=== PATIENT | male | born 1960 | race Caucasian/White ===

== ENCOUNTER 2017-03-20 14:46 | Observation (INO) ==
[2017-03-20] MEDS ORDERED: NS 1,000 ML IV ONE (14:56)
[2017-03-20] MEDS ORDERED: SALINE FLUSH 10ml SYRINGE IVF PRN (14:56)
--- NOTE | 2017-03-20 15:27 | Emergency Department Report ---
Alcohol HPI - General Chief Complaint: Altered Mental Status Stated Complaint: LBP Time Seen by Provider: 03/20/17 14:56 Source: family Mode of arrival: wheelchair Limitations: no limitations - History of Present Illness HPI narrative: 56yo man presented to the ER today for acute alcohol intoxication. Pt had been to today for inpt alcohol detox. While there, he was found to be hypotensive , so he was referred to the ER. On initial presentation, pt was somnolent, diaphoretic, tachypneic, hypotensive, and tachycardic. 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 Chronic alcohol use: Yes Previous visits for alcohol intoxication: Yes Recent trauma: No Associated symptoms: nausea, diaphoresis, tremors, abdominal pain, depression Treatments prior to arrival: none - Related Data Home Medications Medication Instructions Recorded Confirmed Gabapentin 600 mg PO TID #0 tab 12/12/16 03/21/17 Quetiapine Fumarate [Seroquel Xr] 800 tab PO HS #0 12/12/16 03/21/17 cloNIDine HCl [Clonidine HCl] 0.1 mg PO TID #0 tab 12/12/16 03/21/17 Omeprazole [Prilosec] 1 cap PO ACB 03/20/17 03/20/17 Propranolol [Inderal] 20 mg PO TID 03/20/17 03/20/17 Tamsulosin [Flomax] 0.4 mg PO HS 03/20/17 03/21/17 Venlafaxine [Effexor] 3 tab PO DAILY 03/20/17 03/20/17 Ondansetron Odt [Zofran Po] 1 tab PO Q6HPRN PRN 03/21/17 03/21/17 Sildenafil Citrate [Viagra] 100 mg PO DAILY PRN MDD 1 03/21/17 03/21/17 hydrOXYzine HCl [Hydroxyzine HCl] 50 mg PO TID 03/21/17 03/21/17 Previous Rx's Medication Instructions Recorded Famotidine [Pepcid] 2 tab PO DAILY #60 tab 03/21/17 Folic Acid [Folate] 1 tab PO DAILY #100 tab 03/21/17 Prochlorperazine Maleate 10 mg PO QID PRN #30 tablet 03/21/17 [Compazine] Allergies Allergy/AdvReac Type Severity Reaction Status Date / Time No Known Drug Allergies Allergy Unknown Verified 12/12/16 14:54 Review of Systems Limitations: ROS unobtainable due to patient's medical condition PFSH HTN BPH ED Depression Chronic pain Insomnia - Social History Alcohol intake: current Alcohol intake frequency: 3 or more drinks per day Last drink: just [employer] Physical Exam - Limitations Limitations: altered mental status - General General appearance: obtunded - Normal Exams: Head:: Normocephalic without trauma Eyes:: Pupils are PERRLA w/ EOMI, No scleral icterus, irritation ENMT:: No facial trauma, nasal exudates, pharyngeal erythema Neck:: Full range of motion, without adenopathy, JVD Chest/Respirations:: Clear all johnson, with good airflow, and symmetry bilaterally Abdomen:: Bowel sounds positive, soft, non-tender, non-distended, no hepatosplenomegaly Lymphatic:: No lymphadenopathy Musculoskeletal:: No tenderness, or deformity noted Integumentary:: No rashes, hives, or bruising noted - Cardiovascular Cardiovascular exam: Present: tachycardia, normal heart sounds, +S1, +S2. Absent: rubs, gallop, clicks - Neurological Exam Neurological exam: Present: CN II-XII intact. Absent: alert, oriented X3 - Expanded Neurological Exam Coma scale eye opening: to voice Coma scale motor response: localizes to pain Coma scale verbal response: confused Coma scale total: 12 - Psychiatric Psychiatric exam: Absent: normal affect Course Course Narrative: Pt with acute on chronic alcoholic intoxication. Despite treatment, continued somnolence. Labs show dehydration - creatinine elevated and specific gravity of urine elevated. Will contact hospitalist for further treatment while awaiting resolution of obtundation; anticipate txfr to inpt drug/alcohol rehab in 24- 48hrs. - Reevaluation(s) Reevaluation #1: Pts BP is increasing to normal levels; tachycardia has resolved. Pt is more easily arousable, but still somnolent. Time: 16:09 - Consultations Consultation #1: Hospitalist. Time: 16:09 Alcohol - Differential Diagnosis Differential diagnosis: Likely: alcohol withdrawal delirium, hypomagnesemia, alcohol intoxication, alcohol ketoacidosis, other, alcohol withdrawal syndrome, alcohol withdrawal seizure - Lab Data Result diagrams: 03/21/17 05:56 03/21/17 05:56 Labs: Lab Results 03/20/17 Range/Units 15:03 Glucometer 125 (65-110) mg/dL - Radiology Data Attestation: I reviewed the patient's radiology results. CXR: Hypoinflation with right lower lobe atelectasis. - ECG Data Tracing #1 I reviewed this ECG and interpreted as documented below: ECG initial impression date: 03/20/17 ECG initial impression time: 15:20 Arrhythmias present: sinus tach Additional comments: LVH; LAD Disposition Clinical Impression: Dehydration Alcohol dependence Qualifiers: Substance use status: in withdrawal Complication of substance-induced condition : with unspecified complication Qualified Code(s): F10.239 - Alcohol dependence with withdrawal, unspecified Disposition: 02 To OBS [facility] Condition: Stable Time of Disposition: 16:38 - Seen By: physician
--- NOTE | 2017-03-20 15:40 | XRay Report ---
Indication: Unconscious PROCEDURE: XR chest 1V: Encounter: Initial Comparison: None Findings: Lungs are mildly hypoinflated with an elevated right hemidiaphragm. Linear atelectasis in the right lower lobe. Apices are secured by overlapping soft tissues. No obvious pneumothorax. Cardiac silhouette is at the upper limits of normal in size. Mediastinal contours and pulmonary vascularity appear normal. Impression: Hypoinflation with right lower lobe atelectasis. .
[2017-03-20] MEDS ORDERED: POTASSIUM CHLORIDE INJ 20 MEQ in NS 1,000 ML IV ONE (15:47)
[2017-03-20] MEDS ORDERED: NS IV ONE (15:49)
[2017-03-20] MEDS ORDERED: MAGNESIUM SULFATE IV ONE (15:49)
[2017-03-20] MEDS ORDERED: ONDANSETRON 4 MG/2 ML INJECTION IVP PRN (17:40)
[2017-03-20] MEDS ORDERED: ACETAMINOPHEN 650 MG SUPPOSITORY PR PRN (17:40)
[2017-03-20] MEDS ORDERED: IBUPROFEN 600 MG TABLET PO PRN (17:40)
[2017-03-20] MEDS: NS 1,000 ML IV SCH (17:48)
[2017-03-20] MEDS ORDERED: HALOPERIDOL 5 MG/ML INJECTION IVP PRN (18:10)
--- NOTE | 2017-03-20 18:25 | History & Physical Report ---
History of Present Illness Date: Chief complaint: Somnolence, Low blood pressure HPI: 56 y/o WM with chronic ETHOism presents to to initiate ETOH treatment. Did have inpatient ETOH treatment at in December of this year, but report that he never followed though with outpatient treatment modalities. About 30+ years of ETOH abuse, starting with his service. Pt reports drinking about 2 pints of Vodka a day. Has been having n/v for the past week - oral intake of food/liquids very diminished during this time. Unsteady with ambulation; near falls reports. Stools loose. Wanted help for his ETOH abuse and contacted for evaluation. Came from [place] with his for evaluation,but when got out of truck at , very weak and unsteady-about fell. During intake, pt was very somnolent and confused. BP found to be low. Presents to [facility] for evaluation. Tachycardic and hypotensive initially, but BP/HR did improve with IVF bolus. Somnolence continued. Lab showing pt quite dehydrated - creatinine elevated and specific gravity of urine elevated. Dr Bowers notified and pt placed on OBS status for further evaluation and treatment. Review of Systems ROS unobtainable: due to mental status (Pt somnolent and not able to say wake with questioning. ) FORMERLY [facility], [facility]1983 Patient Stated Medical History Hearing Loss Yes: left ear since Hypertension Yes Sleep Apnea Yes Gastroesophageal Reflux Yes Disease Other Musculoskeletal Yes: Ryders Syndrome Depression Yes Post Traumatic Stress Disorder Yes Medical History Updates: Chronic ETOHism. HTN. Reiters. GERD. BPH. Depression. ED. Obesity Surgical History: Hx Cholecystecomy. Hx Vasectomy Family History: Mother has DM - living at 81 Father in his 60's - lung problems. Smoking status: Current every day smoker Packs per day: 1 Alcohol intake: current (2 pints vodka a day) Last drink: unknown (N/V for last week - less intake during this time) Housing: house Household members: spouse (7 years) service: Yes ([employer]) Current occupational status: retired Current residence: Apartment/Private Home Medications Home Medications Medication Instructions Recorded Confirmed Type Folic Acid 1 mg PO DAILY #0 tab 12/12/16 03/20/17 History Gabapentin 600 mg PO BID #0 tab 12/12/16 03/20/17 History Lisinopril 20 mg PO DAILY #0 tab 12/12/16 03/20/17 History Meloxicam 7.5 mg PO BID #0 tab 12/12/16 03/20/17 History Quetiapine Fumarate [Seroquel Xr] 800 tab PO HS #0 12/12/16 03/20/17 History cloNIDine HCl [Clonidine HCl] 0.1 mg PO TID #0 tab 12/12/16 03/20/17 History hydrOXYzine pamoate [Vistaril] 50 mg PO TID #0 cap 12/12/16 03/20/17 History Omeprazole [Prilosec] 1 cap PO ACB 03/20/17 03/20/17 History Propranolol [Inderal] 20 mg PO TID 03/20/17 03/20/17 History Tadalafil [Cialis] 10 mg PO PRN PRN 03/20/17 03/20/17 History Tamsulosin [Flomax] 0.4 mg PO HS 03/20/17 03/20/17 History Venlafaxine [Effexor] 3 tab PO DAILY 03/20/17 03/20/17 History Allergies Allergy/AdvReac Type Severity Reaction Status Date / Time No Known Drug Allergies Allergy Unknown Verified 12/12/16 14:54 Exam Vital Signs: Temp Pulse Resp BP Pulse Ox 98.4 F 101 H 14 116/65 98 03/20/17 17:17 03/20/17 17:17 03/20/17 17:17 03/20/17 17:17 03/20/17 17:33 Height: 1.73 m Weight: 99.2 kg Body Mass Index: 33.2 - Constitutional Present: mild distress, well nourished, well developed, obese, somnolent - Routine HEENT Exam Head: Present: normocephalic, atraumatic Eye: Present: EOMI, PERRL. Absent: conjunctival icterus ENT: Present: mucous membranes dry - Routine Neck Exam Present: supple, full ROM, trachea midline. Absent: JVD, tracheal deviation - Routine Chest/Breast/Axilla Exam Chest wall: Absent: tenderness Breast: Absent: tenderness, swelling - Routine Respiratory Exam Present: decreased breath sounds, diminished air movement. Absent: accessory muscle use, rales, wheezes, crackles - Routine Cardiovascular Exam Present: RRR. Absent: murmur - Routine Abdominal Exam Present: soft, normoactive bowel sounds, non distended, non tender. Absent: guarding, firm - Routine Extremities Exam Present: pulses intact. Absent: cyanosis, clubbing, edema - Routine Skin Exam Present: intact, warm. Absent: pallor, mottling, jaundice - Routine Neurological Exam Present: CN II-XII intact. Absent: alert, oriented X3, motor deficit (Move ext to commands) - Routine Psychiatric Exam Absent: normal affect (Somnolent), anxious, agitated Results - Labs CBC & Chem 7: 03/20/17 15:12 03/20/17 15:12 - Imaging and Cardiology Chest x-ray Status: image reviewed by me Additional comments: Hypoventilation Assessment and Plan (1) Acute kidney injury Current visit: Yes Status: Acute 03/20/17 18:40 POA-suspect secondary to dehydration and medication use. (2) Encephalopathy Current visit: Yes Status: Acute (3) Hypotension Current visit: Yes Status: Acute (4) Dehydration Current visit: Yes Status: Acute (5) Hypokalemia Current visit: Yes Status: Acute 03/20/17 18:41 POA (6) Hypomagnesemia Current visit: Yes Status: Acute 03/20/17 18:41 POA (7) Alcohol dependence Current visit: Yes Status: Chronic (8) Fatty liver Current visit: Yes Status: Chronic (9) HTN (hypertension) Current visit: Yes Status: Chronic (10) Eloise arthritis NEC Current visit: Yes Status: Acute (11) BPH (benign prostatic hyperplasia) Current visit: Yes Status: Chronic (12) Depression Current visit: Yes Status: Chronic (13) Obesity (BMI 30-39.9) Current visit: Yes Status: Chronic DVT Prophylaxis: SCD's GI Prophylaxis: Protonix Resuscitation Status: Full Code Assessment and Plan: Admit to OBS. IVF bolus initiated in ED - 1L NS and 1L NS with 20KCL -- will change to NS at 100cc/hr Flor placed due to BELLA - will check renal US. Hold Lisinopril, propranolol, clonidine due to hypotension and BELLA. Hold Mobic/ ibuprofen due to BELLA. IV Protonix due to GERD (potential ETOH gastritis due to his chronic consumption. Serax 30mg TID to help decrease withdrawal (hold if pt sedated) - Ativan/Haldol prn agitation/withdrawal. Initiate IV thiamine and folic acid use to ETOH use. Zofran prn nausea. SCD for DVT prevention. Will have RT provide tobacco cessation information. Recheck CMP, CBC, Mg, and Phos in am. Care to return to Dr Mandel at discharge. Sepsis Assessment - Evaluation Sepsis screening result: No Definite Risk - Focused Exam Vital Signs Temp Pulse Resp BP Pulse Ox 03/20/17 17:33 98 03/20/17 17:17 98.4 F 101 H 14 116/65 93 03/20/17 16:55 97.8 F 100 22 129/67 87 L Hospital Course Summary Disclaimer: The visit summary below is not to be considered part of the above Progress Note. Hospital Course: 03/20/17 18:58 Admit to OBS. IVF bolus initiated in ED - 1L NS and 1L NS with 20KCL -- will change to NS at 100cc/hr Flor placed due to BELLA - will check renal US. Hold Lisinopril, propranolol, clonidine due to hypotension and BELLA. Hold Mobic/ ibuprofen due to BELLA. IV Protonix due to GERD (potential ETOH gastritis due to his chronic consumption. Serax 30mg TID to help decrease withdrawal (hold if pt sedated) - Ativan/Haldol prn agitation/withdrawal. Initiate IV thiamine and folic acid use to ETOH use. Zofran prn nausea. SCD for DVT prevention. Will have RT provide tobacco cessation information. Recheck CMP, CBC, Mg, and Phos in am. Care to return to Dr Mandel at discharge.
[2017-03-20] MEDS: PANTOPRAZOLE 40 MG INJECTION IVP SCH (19:01)
[2017-03-20] MEDS: FOLIC ACID 5 MG/ML INJECTION IVP SCH (19:48)
[2017-03-20] MEDS: THIAMINE 200mg/2ml INJECTION IVP SCH (19:53)
[2017-03-20] MEDS: HydrOXYzine 50 MG TABLET PO SCH (21:09)
[2017-03-20] MEDS: GABAPENTIN 600 MG TABLET PO SCH (21:09)
[2017-03-20] MEDS: OXAZEPAM 30 MG CAPSULE PO SCH (21:14)
[2017-03-20] MEDS ORDERED: TAMSULOSIN 0.4 MG CAPSULE PO SCH (22:00)
[2017-03-20] MEDS ORDERED: QUETIAPINE 200 MG PO SCH (22:00)
[2017-03-21] MEDS: NS 1,000 ML IV SCH ×2 (04:08→14:18)
[2017-03-21] MEDS ORDERED: OMEPRAZOLE 20 MG CAPSULE PO SCH (06:30)
[2017-03-21] MEDS ORDERED: FOLIC ACID 1 MG TABLET PO SCH ×2 (09:00)
[2017-03-21] MEDS ORDERED: VENLAFAXINE 75 MG TABLET PO SCH (09:00)
[2017-03-21] MEDS: OXAZEPAM 30 MG CAPSULE PO SCH (09:22)
[2017-03-21] MEDS: HydrOXYzine 50 MG TABLET PO SCH (09:23)
[2017-03-21] MEDS: THIAMINE 200mg/2ml INJECTION IVP SCH (09:24)
[2017-03-21] MEDS: PANTOPRAZOLE 40 MG INJECTION IVP SCH (09:24)
[2017-03-21] MEDS: GABAPENTIN 600 MG TABLET PO SCH (09:24)
[2017-03-21] MEDS: FOLIC ACID 5 MG/ML INJECTION IVP SCH (09:26)
--- NOTE | 2017-03-21 09:56 | Ultrasound Report ---
Indication: BELLA PROCEDURE: US renal BI: Encounter: Initial Comparison: CT abdomen and pelvis dated December 12, 2016 Technique: Grayscale and color Doppler sonographic imaging of both kidneys was performed. FINDINGS: Both kidneys are present with normal cortical thickness and echogenicity. No evidence for collecting system dilatation, contour deforming mass, nephrolithiasis, or abnormal perinephric fluid collection. The right kidney measures 11.9 cm in length, and the left kidney measures 12.5 cm in length. Right renal cysts measuring up to 3.5 cm in diameter. IMPRESSION: No hydronephrosis. .
--- NOTE | 2017-03-21 11:00 | Progress Note ---
Subjective: F/U: Acute kidney injury, acute encephalopathy Doing much better this morning. Awake and alert. Communicating well. Feels much less tired and confused. Breathing doing well-not feeling SOA or congested with IVF use. Not having ab pain or nausea. No chest pressure or pain. Objective Vital signs: Temp Pulse Resp BP Pulse Ox 97.1 F 86 18 141/89 H 98 03/21/17 08:00 03/21/17 08:00 03/21/17 08:00 03/21/17 08:00 03/21/17 08:00 Weight: 100.9 kg - Constitutional Present: no acute distress, well nourished, well developed, obese, cooperative. Absent: combative, agitated, obtunded - Routine HEENT Exam Head: Present: normocephalic, atraumatic Eye: Present: EOMI, PERRL. Absent: conjunctival icterus, scleral injection ENT: Present: mucous membranes moist - Routine Respiratory Exam Present: CTA bilaterally. Absent: rales, respiratory distress, rhonchi, wheezes , crackles - Routine Cardiovascular Exam Present: RRR - Routine Abdominal Exam Present: soft, normoactive bowel sounds, non distended, non tender - Routine Extremities Exam Present: pulses intact. Absent: cyanosis, clubbing, edema, joint swelling - Routine Musculoskeletal Exam Musculoskeletal: no clubbing or cyanosis, normal strength, no joint swelling - Routine Skin Exam Present: intact, dry, warm, normal turgor. Absent: mottling, jaundice - Routine Neurological Exam Present: alert, oriented X3, CN II-XII intact, vision grossly intact, hearing grossly intact. Absent: motor deficit - Routine Psychiatric Exam Present: normal affect, normal thought process, cooperative. Absent: anxious, agitated, paranoid, manic Results - Labs CBC & Chem 7: 03/21/17 05:56 03/21/17 05:56 Assessment and Plan (1) Acute kidney injury Current visit: Yes Status: Resolved 03/20/17 18:40 POA-suspect secondary to dehydration and medication use. (2) Encephalopathy Current visit: Yes Status: Resolved (3) Hypotension Current visit: Yes Status: Resolved (4) Dehydration Current visit: Yes Status: Resolved (5) Hypokalemia Current visit: Yes Status: Resolved 03/20/17 18:41 POA (6) Hypomagnesemia Current visit: Yes Status: Resolved 03/20/17 18:41 POA (7) Alcohol dependence Current visit: Yes Status: Chronic (8) Fatty liver Current visit: Yes Status: Chronic (9) HTN (hypertension) Current visit: Yes Status: Chronic (10) Eloise arthritis NEC Current visit: Yes Status: Acute (11) BPH (benign prostatic hyperplasia) Current visit: Yes Status: Chronic (12) Depression Current visit: Yes Status: Chronic (13) Obesity (BMI 30-39.9) Current visit: Yes Status: Chronic DVT Prophylaxis: SCD's GI Prophylaxis: Protonix Resuscitation Status: Full Code Assessment and Plan: Renal status returning to baseline and BP improved. Encephalopathy resolved. Will d/c Flor cath. Nursing to ambulate to help improve stability. Continue to hold lisinopril due to resolving BELLA. Continue with Serax to help with ETOH withdrawal. Encourage outpatient ETOH treatment. Anticipate discharge later today. Sepsis Assessment - Evaluation Sepsis screening result: No Definite Risk - Focused Exam Vital Signs Temp Pulse Resp BP Pulse Ox 03/21/17 08:00 97.1 F 86 18 141/89 H 98 03/21/17 00:02 86 03/21/17 00:00 98.1 F 88 14 129/74 92 Respiratory exam: Present: decreased breath sounds, diminished air movement. Absent: accessory muscle use, rales, wheezes, crackles Cardiovascular exam: Present: RRR. Absent: murmur Capillary refill: < 2-3 Seconds Hospital Course Summary Disclaimer: The visit summary below is not to be considered part of the above Progress Note. Hospital Course: 03/20/17 Admit to OBS. IVF bolus initiated in ED - 1L NS and 1L NS with 20KCL -- will change to NS at 100cc/hr Flor placed due to BELLA - will check renal US. Hold Lisinopril, propranolol, clonidine due to hypotension and BELLA. Hold Mobic/ ibuprofen due to BELLA. IV Protonix due to GERD (potential ETOH gastritis due to his chronic consumption. Serax 30mg TID to help decrease withdrawal (hold if pt sedated) - Ativan/Haldol prn agitation/withdrawal. Initiate IV thiamine and folic acid use to ETOH use. Zofran prn nausea. SCD for DVT prevention. Will have RT provide tobacco cessation information. Recheck CMP, CBC, Mg, and Phos in am. Care to return to Dr Mandel at discharge. 03/21/17 Doing much better this morning. Awake and alert. Communicating well. Feels much less tired and confused. Breathing doing well-not feeling SOA or congested with IVF use. Not having ab pain or nausea. No chest pressure or pain. Lab improved: Creatinine decreased to 1.5. Potassium normal at 3.6. Magnesium improved to 2.3. Renal ultrasound showing normal kidney size and no hydronephrosis. Encephalopathy resolved. Will d/c Flor cath. Nursing to ambulate to help improve stability. Continue to hold lisinopril due to resolving BELLA. Continue with Serax to help with ETOH withdrawal. Encourage outpatient ETOH treatment. Anticipate discharge later today.
[2017-03-21] MEDS ORDERED: OXAZEPAM 30 MG CAPSULE PO ONE (14:23)
--- NOTE | 2017-03-21 14:27 | Discharge Summary ---
Discharge Information Date of admission: 03/20/17 16:49 Anticipated date of discharge: 03/21/17 Attending Physician: Morales Bowers MD Primary care physician: Fabricio Mandel - Discharge Diagnosis (1) Acute kidney injury Status: Resolved (2) Encephalopathy Status: Resolved (3) Hypotension Status: Resolved (4) Dehydration Status: Resolved (5) Hypokalemia Status: Resolved (6) Hypomagnesemia Status: Resolved (7) Alcohol dependence Qualifiers: Substance use status: in withdrawal Complication of substance-induced condition: with unspecified complication Qualified Code(s): F10.239 - Alcohol dependence with withdrawal, unspecified Status: Chronic (8) Fatty liver Status: Chronic (9) HTN (hypertension) Status: Chronic (10) Eloise arthritis NEC Status: Acute (11) BPH (benign prostatic hyperplasia) Status: Chronic (12) Depression Status: Chronic (13) Obesity (BMI 30-39.9) Status: Chronic - Procedures Procedures: Renal ultrasound - no obstruction or hypdronephrosis - Laboratory Labs: 03/21/17 05:56 03/21/17 05:56 History of Present Illness HPI: 56 y/o WM with chronic ETHOism presents to to initiate ETOH treatment. Did have inpatient ETOH treatment at in December of this year, but report that he never followed though with outpatient treatment modalities. About 30+ years of ETOH abuse, starting with his service. Pt reports drinking about 2 pints of Vodka a day. Has been having n/v for the past week - oral intake of food/liquids very diminished during this time. Unsteady with ambulation; near falls reports. Stools loose. Wanted help for his ETOH abuse and contacted for evaluation. Came from [place] with his for evaluation,but when got out of truck at , very weak and unsteady-about fell. During intake, pt was very somnolent and confused. BP found to be low. Presents to [facility] for evaluation. Tachycardic and hypotensive initially, but BP/HR did improve with IVF bolus. Somnolence continued. Lab showing pt quite dehydrated - creatinine elevated and specific gravity of urine elevated. Dr Bowers notified and pt placed on OBS status for further evaluation and treatment. For complete details of the H&P refer to he medical record. Hospital Course Hospital course: 03/20/17 Admit to OBS. IVF bolus initiated in ED - 1L NS and 1L NS with 20KCL -- will change to NS at 100cc/hr Flor placed due to BELLA - will check renal US. Hold Lisinopril, propranolol, clonidine due to hypotension and BELLA. Hold Mobic/ ibuprofen due to BELLA. IV Protonix due to GERD (potential ETOH gastritis due to his chronic consumption. Serax 30mg TID to help decrease withdrawal (hold if pt sedated) - Ativan/Haldol prn agitation/withdrawal. Initiate IV thiamine and folic acid use to ETOH use. Zofran prn nausea. SCD for DVT prevention. Will have RT provide tobacco cessation information. Recheck CMP, CBC, Mg, and Phos in am. Care to return to Dr Mandel at discharge. 03/21/17 Doing much better this morning. Awake and alert. Communicating well. Feels much less tired and confused. Breathing doing well-not feeling SOA or congested with IVF use. Not having ab pain or nausea. No chest pressure or pain. Lab improved: Creatinine decreased to 1.5. Potassium normal at 3.6. Magnesium improved to 2.3. Renal ultrasound showing normal kidney size and no hydronephrosis. Encephalopathy resolved. Will d/c Flor cath. Nursing to ambulate to help improve stability. Continue to hold lisinopril due to resolving BELLA. Continue with Serax to help with ETOH withdrawal. Encourage outpatient ETOH treatment. Anticipate discharge later today. Narrative disclaimer: above narrative is a brief summary of patient's hospitalization; for complete details of the hospital course, refer to the medical record. Time spent with pt's care and discharge greater than 35 minutes. DVT Prophylaxis: SCD's GI Prophylaxis: Protonix Discharge Plan - Med Rec/Dispo Referrals/Follow Up: Fabricio Mandel [Family Provider] - 1 Week Additional Instructions: Serax taper: take 30mg tonight at Bedtime; then take 30mg three times a day for 2 days, then 30mg twice a day for 3 days, then 30mg at night for 4 days. Stop Lisinopril due to elevation of creatinine. Have provider recheck BMP at your visit in 1 week, and he can determine if lisinopril should be restarted. Prescriptions: New Oxazepam [Serax] 30 mg PO TID #18 cap Folic Acid [Folate] 1 tab PO DAILY #100 tab Continue Folic Acid 1 mg PO DAILY #0 tab Gabapentin 600 mg PO BID #0 tab hydrOXYzine pamoate [Vistaril] 50 mg PO TID #0 cap Propranolol [Inderal] 20 mg PO TID Omeprazole [Prilosec] 1 cap PO ACB Tamsulosin [Flomax] 0.4 mg PO HS Venlafaxine [Effexor] 3 tab PO DAILY cloNIDine HCl [Clonidine HCl] 0.1 mg PO TID #0 tab Quetiapine Fumarate [Seroquel Xr] 800 tab PO HS #0 Tadalafil [Cialis] 10 mg PO PRN PRN PRN Reason: unknown Discontinued Lisinopril 20 mg PO DAILY #0 tab Meloxicam 7.5 mg PO BID #0 tab - Disposition 01 Discharged Home, Self-Care
== END 2017-03-21 15:10 | disposition home or self-care (01) ==
LOC: ED 14:46 → MED 14:46
PROVIDERS: ADMIT Hospitalist; ATTEND Hospitalist